=== PATIENT | female | born 1960 | race Caucasian/White ===

== ENCOUNTER 2017-12-09 11:51 | Observation (INO) ==
[2017-12-09 12:22] LABS: Basophils % 0.6 %; Eosinophils # 0.3 K/mcL (0.0-0.6); Eosinophils % 4.3 %; Hematocrit 41.2 % (35.3-44.9); Hemoglobin 13.7 g/dL (11.5-15.4); Immature Granulocytes % 0.3 % (0-4); Lymphocytes # 2.1 K/mcL (0.6-4.6); Lymphocytes % 31.7 %; Mean Corpuscular HGB Conc 33.3 g/dL (31.6-35.5); Mean Corpuscular Hemoglobin 28.5 pg (28.0-33.3); Mean Corpuscular Volume 85.7 fL (83.0-100.0); Mean Platelet Volume 10.1 fL (9.4-12.4); Monocytes # 0.4 K/mcL (0.0-1.3); Monocytes % 6.1 %; Neutrophils # 3.8 K/mcL (1.6-8.9); Platelet Count 163 K/mcL (140-400); Red Blood Count 4.81 M/mcL (3.82-4.97); Red Cell Distribution Width 12.5 % (11.5-14.5)
[2017-12-09 12:34] LABS: Albumin 4.3 g/dL (3.5-5.7); Bilirubin,Direct 0.1 mg/dL (0.0-0.2); Bilirubin,Indirect 0.5 mg/dL (0.0-1.2); Bilirubin,Total 0.6 mg/dL (0.3-1.0); Calcium 9.6 mg/dL (8.6-10.3); Carbon Dioxide 25 mEq/L (23-29); Chloride 105 mEq/L (98-107); Potassium 4.2 mEq/L (3.5-5.1); Sodium 137 mEq/L (136-145)
[2017-12-09 12:40] LABS: Alanine Aminotransferase 25 Units/L (7-52); Albumin/Globulin Ratio 1.5 (1.1-2.2); Alkaline Phosphatase 82 Units/L (34-104); Aspartate Amino Transferase 31 Units/L (13-39); BUN/Creatinine Ratio 19 (6-26); Blood Urea Nitrogen 11 mg/dL (6-20); Globulin 2.8 g/dL (2.4-3.5); Glucose 171 mg/dL (70-105); Lipase 34 Units/L (11-82); Osmolality,Calculated 287 (280-300); Total Protein 7.1 g/dL (6.4-8.9); eGFR For African Americans > 60 (> 60); eGFR For Non-African Americans > 60 (> 60)
--- NOTE | 2017-12-09 15:56 | Emergency Department Note ---
START Narrative - START START: I examined this patient and my medical decision-making was reviewed with the [employer]/PA/Advanced Practice Nurse/Resident Physician. I agree with the documented findings, disposition and treatment plan as described except to the extent set forth below. ED attending: Patient's emergency medicine resident Dr. JIE MUNIZ Please see copy of this note for H&P evaluation and management and ED disposition. We both had independent [id number] time in contact with this patient. Briefly: A 57-year-old female presents with several days of right upper quadrant pain and nausea. Some guarding but no rebound. No distention. Patient is afebrile with stable vital signs. Patient still has her gallbladder. Patient with screening labs and a right upper quadrant ultrasound. Her pain and discomfort and nausea will be treated. Disposition pending.
[2017-12-09] MEDS ORDERED: Hyoscyamine SL 0.125 MG TAB.SUBL SL ONE (16:22)
--- NOTE | 2017-12-09 18:12 | Emergency Department Note ---
Disposition Clinical Impression: Gall bladder disease Disposition: Admitted As Inpatient Condition: Good Referrals: Taurus Elizabeth MD [Primary Care Provider] - Forms: ED Satisfaction Letter, Work/School Release Abdominal Pain HPI - General Chief Complaint: ED Abdominal Pain Stated Complaint: abd pain Source: patient Mode of arrival: ambulatory Limitations: no limitations Nursing Notes Reviewed: Yes Vital Signs Reviewed: Yes - History of Present Illness HPI Narrative: Patient presents today for evaluation of right upper quadrant abdominal pain. Patient's symptoms started 3 weeks ago. Intermittent in nature. Over the last 4 days has been chronic. Seen by PCP and prescribed outpatient ultrasound. Pain has been worsening causing her to feel nauseous and not have any appetite. Patient's pain is rated 9 out of 10. Patient has had previous appendectomy when they removed her uterus as well as both ovaries. No other abdominal surgeries. Pain Scale: 7 - Related Data Home Medications Medication Instructions Recorded Confirmed Insulin ASPART [NovoLOG] 15 unit SQ ACHS 10/08/15 12/09/17 Atorvastatin Calcium [Lipitor] 20 mg PO HS 12/09/17 12/09/17 Cholecalciferol (Vitamin D3) 8,000 unit PO DAILY 12/09/17 12/09/17 [Vitamin D3] Insulin Glargine,Hum.rec.anlog 80 unit SQ HS 12/09/17 12/09/17 [Lantus Solostar] Metformin HCl [Glucophage] 1,000 mg PO BID 12/09/17 12/09/17 Vitamin E Acid Succinate [Vitamin 400 unit PO DAILY 12/09/17 12/09/17 E] Previous Rx's Medication Instructions Recorded Losartan Potassium [Cozaar] 100 mg PO DAILY #90 tab 04/21/17 Venlafaxine XR (24 HR) [Effexor XR] 150 mg PO DAILY #90 cap.er.24h 04/21/17 Tamoxifen Citrate 20 mg PO DAILY #90 tab 12/05/17 Allergies Allergy/AdvReac Type Severity Reaction Status Date / Time diphenhydramine AdvReac Anxiety Verified 12/09/17 16:18 [From Jose] Review of Systems: CONSTITUTIONAL: No weight loss, fever, chills, weakness or fatigue. HEENT: Eyes: No visual changes. Ears, Nose, Throat: No hearing loss, difficulty talking or unable to swallow. SKIN: No rash or itching. CARDIOVASCULAR: No chest pain, chest pressure or chest discomfort. No palpitations or edema. RESPIRATORY: No shortness of breath, cough or sputum. GASTROINTESTINAL: Abdominal pain, nausea, decreased appetite GENITOURINARY: No burning on urination or hematuria. NEUROLOGICAL: No headache, dizziness, syncope, paralysis, ataxia, numbness or tingling in the extremities. No change in bowel or bladder control. MUSCULOSKELETAL: No muscle pain, back pain, joint pain or stiffness. Abdominal Pain PMH - Past Medical History Medical history: Reports: cancer, hyperlipidemia, hypertension Female Surgical History: Reports: breast surgery, hysterectomy Psychiatric history: Reports: anxiety, depression - Social History Smoking status: Current some day smoker Alcohol use: Reports: none Drug use: Reports: none Physical Exam General: Well appearing, nontoxic, no acute distress Head: Normocephalic Atraumatic Eyes: PERRL, EOMI ENT: Airway patent, no stridor Neck: supple, no meningismus Chest: Lungs clear to auscultation bilateral Cardiac: Regular rate and rhythm, no murmurs, rubs or gallops Abdomen: Right upper quadrant tenderness with guarding but no rebound, no CVA tenderness. Musculoskeletal: Calves symmetric, nontender, no palpable cord Skin: No rash, normal skin tone Neuro: Alert and Oriented to person, place, and time; No focal deficit, CN 2-12 symmetric and intact - General Limitations: no limitations General appearance: alert, in no apparent distress Course - Consultations Consultation #1: Discussed ultrasound findings with Dr. Thompson. Patient with continued symptoms for 3 days. He will eval at bedside. Accepts patient to his service. Vital Signs Temperature 97.8 F 12/09/17 12:01 Pulse Rate 103 12/09/17 12:01 Respiratory Rate 18 12/09/17 12:01 Blood Pressure 118/78 12/09/17 12:01 O2 Sat by Pulse Oximetry 98 12/09/17 12:01 Temperature 97.8 F 12/09/17 12:01 Pulse Rate 103 12/09/17 12:01 Respiratory Rate 18 12/09/17 12:01 Blood Pressure 118/78 12/09/17 12:01 O2 Sat by Pulse Oximetry 98 12/09/17 16:20 Oxygen Delivery Oxygen Delivery Room Air Abdominal Pain - Lab Data Result diagrams: 12/09/17 12:10 12/09/17 12:10 Lab Results 12/09/17 12/09/17 Range/Units 12:10 12:10 WBC 6.6 (4.3-11.1) K/mcL RBC 4.81 (3.82-4.97) M/mcL Hgb 13.7 (11.5-15.4) g/dL Hct 41.2 (35.3-44.9) % MCV 85.7 (83.0-100.0) fL MCH 28.5 (28.0-33.3) pg MCHC 33.3 (31.6-35.5) g/dL RDW 12.5 (11.5-14.5) % Plt Count 163 (140-400) K/mcL MPV 10.1 (9.4-12.4) fL Immature Gran % 0.3 (0-4) % Seg Neutrophils % 57.0 % Lymphocytes % 31.7 % Monocytes % 6.1 % Eosinophils % 4.3 % Basophils % 0.6 % Neutrophils # 3.8 (1.6-8.9) K/mcL Lymphocytes # 2.1 (0.6-4.6) K/mcL Monocytes # 0.4 (0.0-1.3) K/mcL Eosinophils # 0.3 (0.0-0.6) K/mcL Basophils # 0.0 (0.0-0.2) K/mcL Sodium 137 (136-145) mEq/L Potassium 4.2 (3.5-5.1) mEq/L Chloride 105 (98-107) mEq/L Carbon Dioxide 25 (23-29) mEq/L BUN 11 (6-20) mg/dL Creatinine 0.58 L (0.60-1.20) mg/dL Est GFR ( Amer) > 60 (> 60) Est GFR (Non-Af Amer) > 60 (> 60) BUN/Creatinine Ratio 19 (6-26) Glucose 171 H (70-105) mg/dL Calculated Osmolality 287 (280-300) Calcium 9.6 (8.6-10.3) mg/dL Total Bilirubin 0.6 (0.3-1.0) mg/dL Direct Bilirubin 0.1 (0.0-0.2) mg/dL Indirect Bilirubin 0.5 (0.0-1.2) mg/dL AST 31 (13-39) Units/L ALT 25 (7-52) Units/L Alkaline Phosphatase 82 (34-104) Units/L Serum Total Protein 7.1 (6.4-8.9) g/dL Albumin 4.3 (3.5-5.7) g/dL Globulin 2.8 (2.4-3.5) g/dL Albumin/Globulin Ratio 1.5 (1.1-2.2) Lipase 34 (11-82) Units/L
[2017-12-09] MEDS ORDERED: GI Cocktail 40 ML EACH PO ONE (19:34)
[2017-12-09] MEDS ORDERED: Ondansetron 4 MG/2 ML VIAL IVP PRN (19:34)
--- NOTE | 2017-12-09 19:46 | General Surg History&Physical ---
Date of Encounter: 12/09/17 Time of Encounter: 19:41 Assessment and Plan (1) Gall bladder disease Current Visit: Yes Status: Acute 57F with biliary colic, likely cholecystitis; NPO IVF abx plan for OR in AM; discussed with patient; The assessment and plan as outlined above was discussed with the patient and/or family members who expressed understanding and agreement. All questions were answered. History of Present Illness Chief complaint: abdominal pain HPI: Ms. Harris is a 57 year old female h/o HTN, DM II currently on insulin, last Hba1c ~ 11 who presents with 3 week history of abdominal pain localized to the RUQ with radiation to her back with associated nausea, vomiting; no reports of fevers, chills. She states that at present she is unable tolerate a diet at present. she presents to the ED for further management. Past Med Surg Social Fam HX - Past Medical History Medical history: cancer, hyperlipidemia, hypertension Psychiatric history: anxiety, depression - Past Surgical History Surgical History: breast surgery, cancer surgery - Social History Smoking Status: Current some day smoker Smokeless Tobacco Status: No Alcohol use: none Drug use: none - Additional Family History Additional family history: non contributory Medications and Allergies Insulin ASPART [NovoLOG] 15 unit SQ ACHS 10/08/15 [History] Losartan Potassium [Cozaar] 100 mg PO DAILY #90 tab 04/21/17 [Rx] Venlafaxine XR (24 HR) [Effexor XR] 150 mg PO DAILY #90 cap.er.24h 04/21/17 [Rx] Tamoxifen Citrate 20 mg PO DAILY #90 tab 12/05/17 [Rx] Atorvastatin Calcium [Lipitor] 20 mg PO HS 12/09/17 [History] Cholecalciferol (Vitamin D3) [Vitamin D3] 8,000 unit PO DAILY 12/09/17 [History] Insulin Glargine,Hum.rec.anlog [Lantus Solostar] 80 unit SQ HS 12/09/17 [History ] Metformin HCl [Glucophage] 1,000 mg PO BID 12/09/17 [History] Vitamin E Acid Succinate [Vitamin E] 400 unit PO DAILY 12/09/17 [History] 3 Allergy/AdvReac Type Severity Reaction Status Date / Time diphenhydramine AdvReac Anxiety Verified 12/09/17 16:18 [From Jose] Review of Systems All systems PM: A 10-system review of systems was performed and is negative for pertinent findings except as documented above in the HPI. General Surgery Exam Initial Vital Signs Temp Pulse Resp BP Pulse Ox 97.8 F 103 18 118/78 98 12/09/17 12:01 12/09/17 12:01 12/09/17 12:01 12/09/17 12:01 12/09/17 12:01 - General physical appearance no distress - Eyes other (no scleral icterus), normal ocular movement - ENT normocephalic - Neck no lymphadectomy - Respiratory normal expansion, normal respiratory effort - Cardiovascular Cardiovascular exam: Present: RRR - Abdomen Abdomen general surgery: Present: soft, tender Abdominal Tenderness: Present: RUQ - Integumentary Integumentary general surgery: Present: warm and dry - Neurologic Present: CN 2-12 grossly intact - Musculoskeletal Present: normal gait - Psychiatric Psychiatric general surgery: Present: A&Ox3 Results - Labs 12/09/17 12:10 12/09/17 12:10 Abnormal lab results Creatinine 0.58 mg/dL (0.60-1.20) L 12/09/17 12:10 Glucose 171 mg/dL (70-105) H 12/09/17 12:10 Diabetes panel 12/09/17 Range/Units 12:10 Sodium 137 (136-145) mEq/L Potassium 4.2 (3.5-5.1) mEq/L Chloride 105 (98-107) mEq/L Carbon Dioxide 25 (23-29) mEq/L BUN 11 (6-20) mg/dL Creatinine 0.58 L (0.60-1.20) mg/dL Glucose 171 H (70-105) mg/dL Calcium 9.6 (8.6-10.3) mg/dL AST 31 (13-39) Units/L ALT 25 (7-52) Units/L Alkaline Phosphatase 82 (34-104) Units/L Albumin 4.3 (3.5-5.7) g/dL Calcium panel 12/09/17 Range/Units 12:10 Calcium 9.6 (8.6-10.3) mg/dL Albumin 4.3 (3.5-5.7) g/dL Pituitary panel 12/09/17 Range/Units 12:10 Sodium 137 (136-145) mEq/L Potassium 4.2 (3.5-5.1) mEq/L Chloride 105 (98-107) mEq/L Carbon Dioxide 25 (23-29) mEq/L BUN 11 (6-20) mg/dL Creatinine 0.58 L (0.60-1.20) mg/dL Glucose 171 H (70-105) mg/dL Calcium 9.6 (8.6-10.3) mg/dL Adrenal panel 12/09/17 Range/Units 12:10 Sodium 137 (136-145) mEq/L Potassium 4.2 (3.5-5.1) mEq/L Chloride 105 (98-107) mEq/L Carbon Dioxide 25 (23-29) mEq/L BUN 11 (6-20) mg/dL Creatinine 0.58 L (0.60-1.20) mg/dL Glucose 171 H (70-105) mg/dL Calcium 9.6 (8.6-10.3) mg/dL Total Bilirubin 0.6 (0.3-1.0) mg/dL AST 31 (13-39) Units/L ALT 25 (7-52) Units/L Alkaline Phosphatase 82 (34-104) Units/L Albumin 4.3 (3.5-5.7) g/dL All other labs normal. - Imaging US - abdomen: report reviewed, image reviewed (all images were reviewed and intepreted by me)
[2017-12-09] MEDS ORDERED: Insulin DETEMIR 100 UNIT/ML X5UNITS SQ SCH (21:30)
[2017-12-09] MEDS ORDERED: Piperacillin/Tazobactam 3.375 GM in Water for inj. (sterile) 20 ML 20 ML IVPB SCH (22:00)
[2017-12-09] MEDS: D5% in 0.45% NACL w KCl 20 MEQ/1,000 ML MLS IVC SCH (22:29)
[2017-12-09] MEDS: *HR* FentaNYL (PF) 100 MCG/2 ML VIAL IVP PRN (22:34)
[2017-12-10] MEDS: Insulin LISPRO 300 UNITS/3 ML VIAL SQ SCH ×5 (03:03→21:59)
[2017-12-10] MEDS: *HR* FentaNYL (PF) 100 MCG/2 ML VIAL IVP PRN ×3 (03:16→14:23)
[2017-12-10] MEDS ORDERED: Venlafaxine XR (24 HR) 150 MG CAP.ER.24H PO SCH (09:00)
[2017-12-10] MEDS: D5% in 0.45% NACL w KCl 20 MEQ/1,000 ML MLS IVC SCH (11:23)
--- NOTE | 2017-12-10 14:47 | General Surgery Progress Note ---
Date of Encounter: 12/10/17 Time of Encounter: 14:45 - Assessment and Plan (1) Gall bladder disease Current Visit: Yes Status: Acute 57F with biliary colic, likely acute cholecystitis; NPO IVF abx plan for OR today for lap andrew Subjective Patient reports: no new complaints, feels better, still having pain, afebrile Objective Vital Signs - Last 8 Hours Temp Pulse Resp BP Pulse Ox 12/10/17 11:57 98.3 F 83 18 136/87 96 12/10/17 08:30 98.3 F 77 18 126/80 95 Intake and Output 12/09/17 12/10/17 12/10/17 23:59 07:59 15:59 Intake Total 100 / 100 1100 / 1100 Output Total 0 / 0 Balance 100 / 100 1100 / 1100 Intake: IV Fluids 100 / 100 1100 / 1100 KCl 20mEq IN D5%-0.45 NACL 20 1000 / 1000 meq In 1,000 ml @ 100 mls/hr IVC .Q10H JUNAID Rx#:[id number] Zosyn 3.375 GM In 0.9 % Sodium 100 / 100 100 / 100 Chloride 100 ML @ 25 mls/hr IVPB Q8H JUNAID Rx#:[id number] Oral 0 / 0 Output: Urine 0 / 0 Other: Weight 91.2 kg Blood Glucose* 185 256 Patient Weight 12/10/17 23:59 Weight 91.2 kg - General physical appearance no distress - Eyes normal ocular movement - Respiratory normal expansion, normal respiratory effort - Cardiovascular Cardiovascular exam: Present: RRR - Abdomen Abdomen: Present: soft, tender Abdominal Tenderness: RUQ - Neurologic CN 2-12 grossly intact - Psychiatric oriented to time, oriented to person, oriented to place - Labs 12/09/17 12:10 12/09/17 12:10 Consult Discharge Plan - Plan Referrals: Taurus Elizabeth MD [Primary Care Provider] -
[2017-12-10] MEDS ORDERED: *HR* FentaNYL (PF) 100 MCG/2 ML VIAL ONE (15:50)
[2017-12-10] MEDS ORDERED: *HR* Rocuronium Bromide 50 MG/5 ML VIAL ONE (15:50)
[2017-12-10] MEDS ORDERED: Lidocaine -MPF 4% 5 ML AMPUL ONE (15:50)
[2017-12-10] MEDS ORDERED: Lidocaine -MPF 2% 2 ML VIAL ONE (15:50)
[2017-12-10] MEDS ORDERED: *HR* Propofol 200 MG/20 ML VIAL IVP ONE (15:50)
[2017-12-10] MEDS ORDERED: *HR* Midazolam HCl 2 MG/2 ML VIAL ONE (15:51)
--- NOTE | 2017-12-10 15:55 | Anesthesia Evaluation PreOp ---
Date of Encounter: 12/10/17 Time of Encounter: 15:52 - Past History Planned Operation: Robotic lap cholecystectomy Pulmonary History: Smoker MOVIE WRITER History: Other (anxiety, depression) Anesthesia History: No Prior Anesthetic Complications, Past Anesthesia (R breast ca,EGD, colonoscopy) Alcohol Use: none Drug use: none Medications and Allergies Insulin ASPART [NovoLOG] 15 unit SQ ACHS 10/08/15 [History] Losartan Potassium [Cozaar] 100 mg PO DAILY #90 tab 04/21/17 [Rx] Venlafaxine XR (24 HR) [Effexor XR] 150 mg PO DAILY #90 cap.er.24h 04/21/17 [Rx] Tamoxifen Citrate 20 mg PO DAILY #90 tab 12/05/17 [Rx] Atorvastatin Calcium [Lipitor] 20 mg PO HS 12/09/17 [History] Cholecalciferol (Vitamin D3) [Vitamin D3] 8,000 unit PO DAILY 12/09/17 [History] Insulin Glargine,Hum.rec.anlog [Lantus Solostar] 80 unit SQ HS 12/09/17 [History ] Metformin HCl [Glucophage] 1,000 mg PO BID 12/09/17 [History] Vitamin E Acid Succinate [Vitamin E] 400 unit PO DAILY 12/09/17 [History] 3 Allergy/AdvReac Type Severity Reaction Status Date / Time diphenhydramine AdvReac Anxiety Verified 12/09/17 16:18 [From Benadryl] - Meds/Allergy Pre-op Review Medications Reviewed: Yes Allergies Reviewed: Yes Beta Blockers on Current Med List: No Anesthesia Results - Labs 12/09/17 12:10 12/09/17 12:10 Anesthesia Exam Vital Signs/O2 Sat, Most Current Temp Pulse Resp BP Pulse Ox 98.5 F 80 20 130/77 94 12/10/17 15:43 12/10/17 15:43 12/10/17 15:43 12/10/17 15:43 12/10/17 15:43 Height: 1.78m Weight: 91kg NPO (# of Hours): >8 Pain Scale: 0 Pain Scale Used: Numeric (1 - 10) - HEENT Pupil (Motor): Pupils equal, EOMI Mallampati: III Teeth: Missing Oral Opening: Greater than 3 - MOVIE WRITER LOC: Oriented MOVIE WRITER Motor: Normal RUE, Normal LUE, Normal RLE, Normal LLE, Normal Face MOVIE WRITER Sensory: Normal: RUE, LUE, RLE, LLE, Face - Cardiac Rhythm: Regular - Pulmonary Breath Sounds: bilateral Clear Respiratory Effort: Symmetrical Anesthesia Assess/Plan ASA Score: 2 Modified [place] Scale for Level of Consciousness: Cooperative, oriented, and tranquil Anesthetic Plan: General Monitoring Plan: Standard Monitors Recovery Plan: PACU
[2017-12-10] MEDS ORDERED: Ondansetron 4 MG/2 ML VIAL IVP ONE (15:58)
[2017-12-10] MEDS ORDERED: *HR* Promethazine 25 MG/ML VIAL IVP PRN (15:58)
[2017-12-10] MEDS ORDERED: *HR* OxyCODONE Immed Rel 5 MG TABLET PO PRN (15:58)
[2017-12-10] MEDS ORDERED: *HR* HYDROmorphone 2 MG TABLET PO PRN (15:58)
[2017-12-10] MEDS ORDERED: Ringers Solution, Lactated 1,000 ML IVC SCH ×2 (16:00→19:54)
[2017-12-10] MEDS ORDERED: Acetaminophen IV 1,000 MG/100 ML INFUS..BTL ONE (16:16)
[2017-12-10] MEDS ORDERED: Albuterol 2.5 MG/3 ML NEBULIZER IH ONE (16:26)
[2017-12-10] MEDS ORDERED: Albuterol 2.5 MG/3 ML NEBULIZER ONE (16:26)
[2017-12-10] MEDS ORDERED: Neostigmine Methylsulfate 3 MG/3 ML SYRINGE ONE (17:02)
[2017-12-10] MEDS ORDERED: Dexamethasone 4 MG/ML VIAL ONE (17:02)
[2017-12-10] MEDS ORDERED: Ondansetron 4 MG/2 ML VIAL ONE (17:02)
--- NOTE | 2017-12-10 19:02 | Operative Note ---
Date of procedure: 12/10/17 Pre-op diagnosis: acute cholecystitis Post-op diagnosis: same Procedure: robotic cholecystectomy Complications: none Anesthesia: GETA Local Anesthetics: 0.5% Sensorcaine HCL SubQ (cc) Surgeon: Jevon Thompson Was there an medical library assistant present: Yes Keel Press Operator: Cherie Botello Estimated blood loss (cc): 20 Specimen: gallbladder and contents Condition: stable Disposition: PACU Procedure in Detail: The patient was brought into the operating room suite and was placed in the supine position. Mechanical DVT prophylaxis was applied. A time-in was conducted. The patient underwent smooth induction of anesthesia. Preoperative antibiotics were given. The patient was prepped and draped in the usual fashion. A time-out was held identifying the correct patient, pathology, and procedure. Everyone was in agreement and we began the procedure. Incision to Dissection I started by creating a 12mm supraumbilical incision. Via open Joss technique I did enter into the abdomen. I inserted the 12mm trocar followed by the 30 degree camera, ensured that I did not cause intraabdominal injury upon entry, and quickly identified the gallbladder. I created a 5mm incisions one handbreadth to the left and right of the umbilical incision and an medical library assistant port along the R anterior axillary line. I then docked the robot in the usual fashion. Using laparoscopic graspers I managed to elevate the gallbladder above the liver. At the Console I grasp the edge of the gallbladder to retract laterally. Using the [place] instrument as well as the hook-electrocautery, I dissected out the cystic duct and the cystic artery. I excised the posterior tissue to visualize the liver. I was able to clearly visualize the critical view of safety. Critical view of Safety to Excison of the gallbladder I then clipped both structures using plastic clips, two on the stay side, one on the specimen side. Using robotic scissors, I cut between the clip on the specimen side and the first clip on the stay side. Then using tension and counter-tension, I used the electrocautery to excise the gallbladder off of the liver bed. Before complete excision, I evaluated the liver bed to ensure there 1.) there was no bleeding, 2. No excessive bile leakage, and 3.) to evaluate my clips. There was no bleeding, bile leakage, and the clips were all the way across both duct and artery. Removal of gallbladder to Closure After undocking the robot, I inserted the endocatch bag into the umbilical port. I placed the specimen into the bag and retrieved it through the umbilical port. i then irrgiated the liver bed and above the liver before suctioning both irrigation fluid and air. I removed the 5mm ports, turned off the insufllation, then removed the 12mm umbilical port. I then close the umbilical fascia a vicryl suture in a figure of 8 fashion. All incisions were closed with interrupted 4-0 monocryl and sealed with dermabond. The patient tolerated the procedure well and went back to PACU in stable condition.
[2017-12-10] MEDS ORDERED: 0.9 % Sodium Chloride 1,000 ML IVC SCH (19:15)
--- NOTE | 2017-12-10 19:31 | Anesthesia Evaluation Post Op ---
Date of Encounter: 12/10/17 Time of Encounter: 19:30 - Vital Signs Vital Signs: Vital Signs/O2 Sat/Glucose, Most Current Temp Pulse Resp BP Pulse Ox 12/10/17 19:28 97.8 F 77 18 109/63 94 12/10/17 19:18 78 16 106/60 94 12/10/17 19:08 77 14 106/64 95 12/10/17 18:58 97.9 F 76 12 106/58 93 12/10/17 16:29 83 16 122/85 94 12/10/17 15:43 98.5 F 80 20 130/77 94 - Lungs Lungs: Clear Ascult./Percussion - Airway Airway: Non-obstructed - Cardiovascular Regular Rate - Mental Status Mental Status: Alert & Oriented, Answers Appropriately - Pain Pain Scale: 1 - Nausea Vomiting Nausea Vomiting: Not Present - Hydration Hydration: Ice chips - Discharge PostOp Status: Transfer Patient to floor
[2017-12-10] MEDS ORDERED: Ondansetron 4 MG/2 ML VIAL IVP PRN (19:54)
[2017-12-10 21:27] LABS: Alanine Aminotransferase 49 Units/L (7-52); Albumin 3.7 g/dL (3.5-5.7); Albumin/Globulin Ratio 1.5 (1.1-2.2); Alkaline Phosphatase 69 Units/L (34-104); Aspartate Amino Transferase 81 Units/L (13-39); BUN/Creatinine Ratio 13 (6-26); Bilirubin,Total 0.8 mg/dL (0.3-1.0); Blood Urea Nitrogen 8 mg/dL (6-20); Calcium 8.8 mg/dL (8.6-10.3); Carbon Dioxide 24 mEq/L (23-29); Chloride 106 mEq/L (98-107); Globulin 2.5 g/dL (2.4-3.5); Glucose 245 mg/dL (70-105); Osmolality,Calculated 288 (280-300); Potassium 4.5 mEq/L (3.5-5.1); Sodium 136 mEq/L (136-145); Total Protein 6.2 g/dL (6.4-8.9); eGFR For African Americans > 60 (> 60); eGFR For Non-African Americans > 60 (> 60)
[2017-12-10] MEDS: Insulin DETEMIR 100 UNIT/ML X5UNITS SQ SCH (21:59)
[2017-12-10] MEDS: *HR* OxyCODONE Immed Rel 5 MG TABLET PO PRN (21:59)
[2017-12-11] MEDS: *HR* OxyCODONE Immed Rel 5 MG TABLET PO PRN ×3 (05:25→21:03)
[2017-12-11] MEDS: Insulin LISPRO 300 UNITS/3 ML VIAL SQ SCH ×4 (08:09→21:04)
[2017-12-11] MEDS ORDERED: Venlafaxine XR (24 HR) 150 MG CAP.ER.24H PO SCH (09:00)
[2017-12-11 09:40] LABS: Basophils % 0.1 %; Eosinophils # 0.1 K/mcL (0.0-0.6); Eosinophils % 1.2 %; Hematocrit 38.3 % (35.3-44.9); Hemoglobin 12.7 g/dL (11.5-15.4); Immature Granulocytes % 0.2 % (0-4); Lymphocytes # 2.1 K/mcL (0.6-4.6); Lymphocytes % 24.8 %; Mean Corpuscular HGB Conc 33.2 g/dL (31.6-35.5); Mean Corpuscular Hemoglobin 28.7 pg (28.0-33.3); Mean Corpuscular Volume 86.5 fL (83.0-100.0); Mean Platelet Volume 9.5 fL (9.4-12.4); Monocytes # 0.5 K/mcL (0.0-1.3); Monocytes % 5.4 %; Neutrophils # 5.7 K/mcL (1.6-8.9); Platelet Count 147 K/mcL (140-400); Red Blood Count 4.43 M/mcL (3.82-4.97); Red Cell Distribution Width 12.6 % (11.5-14.5); Segmented Neutrophils % 68.3 %
[2017-12-11 10:44] LABS: BUN/Creatinine Ratio 14 (6-26); Blood Urea Nitrogen 8 mg/dL (6-20); Calcium 9.2 mg/dL (8.6-10.3); Carbon Dioxide 25 mEq/L (23-29); Chloride 105 mEq/L (98-107); Glucose 237 mg/dL (70-105); Osmolality,Calculated 290 (280-300); Potassium 3.8 mEq/L (3.5-5.1); Sodium 137 mEq/L (136-145); eGFR For African Americans > 60 (> 60); eGFR For Non-African Americans > 60 (> 60)
--- NOTE | 2017-12-11 13:07 | Discharge Summary ---
Date of Encounter: 12/11/17 Time of Encounter: 13:04 - Discharge Diagnosis (1) Gall bladder disease Priority: Primary Status: Acute Comments: POD#1 s/p robotic andrew; tolerating diet ambulating voiding pain controlled okay for discharge today - Discharge Medications Prescriptions: OxyCODONE Immed Rel [Roxicodone 5 MG] 5 mg PO Q6HR PRN 7 Days #28 tablet PRN Reason: Pain Docusate [Colace] 100 mg PO BID PRN 10 Days #20 capsule PRN Reason: Constipation Home Medications: Insulin ASPART [NovoLOG] 15 unit SQ ACHS 10/08/15 [History] Losartan Potassium [Cozaar] 100 mg PO DAILY #90 tab 04/21/17 [Rx] Venlafaxine XR (24 HR) [Effexor Xr] 150 mg PO DAILY #90 cap.er.24h 04/21/17 [Rx] Tamoxifen Citrate 20 mg PO DAILY #90 tab 12/05/17 [Rx] Atorvastatin Calcium [Lipitor] 20 mg PO HS 12/09/17 [History] Cholecalciferol (Vitamin D3) [Vitamin D3] 8,000 unit PO DAILY 12/09/17 [History] Insulin Glargine,Hum.rec.anlog [Lantus Solostar] 80 unit SQ HS 12/09/17 [History ] Metformin HCl [Glucophage] 1,000 mg PO BID 12/09/17 [History] Vitamin E Acid Succinate [Vitamin E] 400 unit PO DAILY 12/09/17 [History] Docusate [Colace] 100 mg PO BID PRN 10 Days #20 capsule 12/11/17 [Rx] OxyCODONE Immed Rel [Roxicodone 5 MG] 5 mg PO Q6HR PRN 7 Days #28 tablet [Rx] Allergies/Adverse Reactions: 3 Allergy/AdvReac Type Severity Reaction Status Date / Time diphenhydramine AdvReac Anxiety Verified 12/09/17 16:18 [From Jose] General Surgery Exam Initial Vital Signs Temp Pulse Resp BP Pulse Ox 97.8 F 103 18 118/78 98 12/09/17 12:01 12/09/17 12:01 12/09/17 12:01 12/09/17 12:01 12/09/17 12:01 - General physical appearance no distress - Respiratory normal expansion, normal respiratory effort - Cardiovascular Cardiovascular exam: Present: RRR - Abdomen Abdomen general surgery: Present: soft, tender (appropriately tender to palpation) - Incision Incision: Present: clean and dry, intact - Integumentary Integumentary general surgery: Present: warm and dry - Neurologic Present: CN 2-12 grossly intact - Psychiatric Psychiatric general surgery: Present: A&Ox3 Date of admission: 12/09/17 21:26 Primary care physician: Taurus Elizabeth MD Discharging clinician: Jevon Thompson Anticipated date of discharge: 12/11/17 - Patient Status Disposition: Home, Self-Care Condition: Good Overall status at discharge: patient is back to baseline - Discharge Instructions Follow Up With: Taurus Elizabeth MD [Primary Care Provider] - Jevon Thompson MD [Non-Partnered Physician] - Additional Instructions: Pain Narcotics are prescribed. 1-2 tabs every 6 hours. Please take with meals. DO NOT drive while taking narcotics. Activity As tolerated. However, I encourage you to limit heaving lifting and strenuous activity until evaluated in clinic. Diet As tolerated. Bowel Regimen As long as you are taking narcotics, please take the stool softner daily. Warnings If you experience significant redness around the incision or drainage from the incision that is purulent or malodorous, or you experience fevers, chills, or food intolerance (including nausea, vomiting, abdominal pain or distension), jaundice or yellow skin, eyes, tongue/cheek, or any symptoms you feel warrant evaluation, please call the office. If unable to reach the office, please go to nearest urgent care center or emergency department - Diet and Activity Activity: resume usual activities as tolerated Diet: advance to your usual diet - Hospital Course Hospital course: Ms. Harris is a 57 year old female - Time Spent with Patient Total time spent providing and/or coordinating discharge services: Greater than 30 minutes Labs on day of discharge: Labs from last 24 hours 12/11/17 12/11/17 12/10/17 09:34 09:34 21:53 WBC 8.3 RBC 4.43 Hgb 12.7 Hct 38.3 MCV 86.5 MCH 28.7 MCHC 33.2 RDW 12.6 Plt Count 147 MPV 9.5 Immature Gran % 0.2 Seg Neutrophils % 68.3 Lymphocytes % 24.8 Monocytes % 5.4 Eosinophils % 1.2 Basophils % 0.1 Neutrophils # 5.7 Lymphocytes # 2.1 Monocytes # 0.5 Eosinophils # 0.1 Basophils # 0.0 Sodium 137 Potassium 3.8 Chloride 105 Carbon Dioxide 25 BUN 8 Creatinine 0.57 L Est GFR ( Amer) > 60 Est GFR (Non-Af Amer) > 60 BUN/Creatinine Ratio 14 Glucose 237 H POC Glucose 257 H Calculated Osmolality 290 Calcium 9.2 Total Bilirubin AST ALT Alkaline Phosphatase Serum Total Protein Albumin Globulin Albumin/Globulin Ratio 12/10/17 20:09 WBC RBC Hgb Hct MCV MCH MCHC RDW Plt Count MPV Immature Gran % Seg Neutrophils % Lymphocytes % Monocytes % Eosinophils % Basophils % Neutrophils # Lymphocytes # Monocytes # Eosinophils # Basophils # Sodium 136 Potassium 4.5 Chloride 106 Carbon Dioxide 24 BUN 8 Creatinine 0.62 Est GFR ( Amer) > 60 Est GFR (Non-Af Amer) > 60 BUN/Creatinine Ratio 13 Glucose 245 H POC Glucose Calculated Osmolality 288 Calcium 8.8 Total Bilirubin 0.8 AST 81 H ALT 49 Alkaline Phosphatase 69 Serum Total Protein 6.2 L Albumin 3.7 Globulin 2.5 Albumin/Globulin Ratio 1.5
[2017-12-11] MEDS: Insulin DETEMIR 100 UNIT/ML X5UNITS SQ SCH (21:04)
[2017-12-12] MEDS: *HR* OxyCODONE Immed Rel 5 MG TABLET PO PRN (03:29)
[2017-12-12 05:06] LABS: Basophils % 0.4 %; Eosinophils # 0.2 K/mcL (0.0-0.6); Eosinophils % 3.4 %; Hematocrit 38.3 % (35.3-44.9); Hemoglobin 12.4 g/dL (11.5-15.4); Immature Granulocytes % 0.1 % (0-4); Lymphocytes # 2.6 K/mcL (0.6-4.6); Lymphocytes % 38.8 %; Mean Corpuscular HGB Conc 32.4 g/dL (31.6-35.5); Mean Corpuscular Hemoglobin 28.4 pg (28.0-33.3); Mean Corpuscular Volume 87.6 fL (83.0-100.0); Mean Platelet Volume 9.9 fL (9.4-12.4); Monocytes # 0.5 K/mcL (0.0-1.3); Monocytes % 6.7 %; Neutrophils # 3.4 K/mcL (1.6-8.9); Platelet Count 131 K/mcL (140-400); Red Blood Count 4.37 M/mcL (3.82-4.97); Red Cell Distribution Width 12.6 % (11.5-14.5); Segmented Neutrophils % 50.6 %
[2017-12-12 05:27] LABS: BUN/Creatinine Ratio 20 (6-26); Blood Urea Nitrogen 12 mg/dL (6-20); Calcium 8.9 mg/dL (8.6-10.3); Carbon Dioxide 27 mEq/L (23-29); Chloride 106 mEq/L (98-107); Glucose 160 mg/dL (70-105); Osmolality,Calculated 289 (280-300); Potassium 3.6 mEq/L (3.5-5.1); Sodium 138 mEq/L (136-145); eGFR For African Americans > 60 (> 60); eGFR For Non-African Americans > 60 (> 60)
[2017-12-12 06:32] VITALS: BP 133/80
--- NOTE | 2017-12-12 07:48 | Event Note ---
Date of Encounter: 12/12/17 Time of Encounter: 07:48 patient is appropriate for discharge
[2017-12-12] MEDS: Insulin LISPRO 300 UNITS/3 ML VIAL SQ SCH (08:07)
== END 2017-12-12 08:08 | disposition home or self-care (01) ==
LOC: EMEROO 11:51 → 3ANU 11:51
PROVIDERS: ADMIT Surgery; ATTEND Surgery

== ENCOUNTER 2019-12-04 10:50 | Observation (INO) ==
[2019-12-04] MEDS ORDERED: Aspirin 81 MG TAB.CHEW PO ONE (11:17)
[2019-12-04] MEDS: Nitroglycerin 0.4 MG TAB.SUBL SL PRN ×3 (11:34→18:52)
[2019-12-04 11:51] LABS: INR 1.2; Prothrombin Time 13.2 Seconds (9.4-12.1)
[2019-12-04 11:53] LABS: Activated Partial Thrombo Time 34.4 Seconds (26.0-36.0)
[2019-12-04 11:55] LABS: Basophils % 0.4 %; Eosinophils # 0.2 K/mcL (0.0-0.6); Eosinophils % 2.4 %; Hematocrit 41.8 % (35.3-44.9); Hemoglobin 14.1 g/dL (11.5-15.4); Immature Granulocytes % 0.3 % (0-4); Lymphocytes # 2.4 K/mcL (0.6-4.6); Lymphocytes % 31.9 %; Mean Corpuscular HGB Conc 33.7 g/dL (31.6-35.5); Mean Corpuscular Hemoglobin 27.8 pg (28.0-33.3); Mean Corpuscular Volume 82.4 fL (83.0-100.0); Mean Platelet Volume 10.8 fL (9.4-12.4); Monocytes # 0.6 K/mcL (0.0-1.3); Monocytes % 7.5 %; Neutrophils # 4.4 K/mcL (1.6-8.9); Platelet Count 187 K/mcL (140-400); Red Blood Count 5.07 M/mcL (3.82-4.97); Red Cell Distribution Width 13.2 % (11.5-14.5); Segmented Neutrophils % 57.5 %; White Blood Count 7.6 K/mcL (4.3-11.1)
[2019-12-04 12:12] LABS: BUN/Creatinine Ratio 18 (6-26); Blood Urea Nitrogen 15 mg/dL (8-23); Calcium 10.2 mg/dL (8.6-10.3); Carbon Dioxide 23 mEq/L (23-29); Chloride 102 mEq/L (98-107); Glucose 186 mg/dL (70-105); Osmolality,Calculated 290 (280-300); Potassium 3.9 mEq/L (3.5-5.1); Sodium 137 mEq/L (136-145); Troponin I < 0.03 ng/mL (< 0.04); eGFR For African Americans > 60 (> 60); eGFR For Non-African Americans > 60 (> 60)
[2019-12-04] MEDS ORDERED: Ondansetron 4 MG/2 ML VIAL IVP PRN (16:48)
[2019-12-04] MEDS ORDERED: D5% in Water 1,000 ML IVC PRN (17:06)
[2019-12-04] MEDS ORDERED: *HR* Dextrose 50 % in Water (Syg) 50 ML SYRINGE IVP PRN (17:06)
[2019-12-04] MEDS ORDERED: Dextrose Gel 15 GM/37.5 ML TUBE PO PRN ×2 (17:06)
[2019-12-04] MEDS ORDERED: Insulin LISPRO 300 UNITS/3 ML VIAL SQ SCH (21:00)
[2019-12-05 01:36] LABS: Basophils % 0.4 %; Eosinophils # 0.1 K/mcL (0.0-0.6); Eosinophils % 2.9 %; Hematocrit 37.6 % (35.3-44.9); Immature Granulocytes % 0.2 % (0-4); Lymphocytes # 1.8 K/mcL (0.6-4.6); Lymphocytes % 38.1 %; Mean Corpuscular HGB Conc 32.4 g/dL (31.6-35.5); Mean Corpuscular Hemoglobin 27.9 pg (28.0-33.3); Mean Corpuscular Volume 85.8 fL (83.0-100.0); Mean Platelet Volume 11.4 fL (9.4-12.4); Monocytes # 0.4 K/mcL (0.0-1.3); Monocytes % 8.1 %; Neutrophils # 2.4 K/mcL (1.6-8.9); Platelet Count 112 K/mcL (140-400); Red Blood Count 4.38 M/mcL (3.82-4.97); Red Cell Distribution Width 12.9 % (11.5-14.5); Segmented Neutrophils % 50.3 %; White Blood Count 4.8 K/mcL (4.3-11.1)
[2019-12-05 01:37] LABS: Hemoglobin 12.2 g/dL (11.5-15.4)
[2019-12-05 01:40] LABS: INR 1.1
[2019-12-05 01:58] LABS: Alanine Aminotransferase 24 Units/L (7-52); Albumin 3.7 g/dL (3.5-5.7); Albumin/Globulin Ratio 1.3 (1.1-2.2); Alkaline Phosphatase 75 Units/L (34-104); Aspartate Amino Transferase 38 Units/L (13-39); BUN/Creatinine Ratio 20 (6-26); Bilirubin,Total 0.4 mg/dL (0.3-1.0); Blood Urea Nitrogen 17 mg/dL (8-23); Calcium 9.7 mg/dL (8.6-10.3); Carbon Dioxide 25 mEq/L (23-29); Chloride 102 mEq/L (98-107); Globulin 2.8 g/dL (2.4-3.5); Glucose 305 mg/dL (70-105); Magnesium 1.5 mg/dL (1.6-2.6); Osmolality,Calculated 295 (280-300); Potassium 3.8 mEq/L (3.5-5.1); Sodium 136 mEq/L (136-145); Total Protein 6.5 g/dL (6.4-8.9); eGFR For African Americans > 60 (> 60); eGFR For Non-African Americans > 60 (> 60)
[2019-12-05] MEDS ORDERED: Regadenoson 0.4 MG/5 ML SYRINGE IVP ONE (06:20)
[2019-12-05] MEDS ORDERED: Insulin LISPRO 300 UNITS/3 ML VIAL SQ SCH ×2 (07:30→08:52)
[2019-12-05] MEDS ORDERED: Venlafaxine XR (24 HR) 150 MG CAP.ER.24H PO SCH (09:00)
[2019-12-05] MEDS ORDERED: Venlafaxine XR (24 HR) 75 MG CAP.ER.24H PO SCH (09:00)
[2019-12-05 09:34] VITALS: BP 139/83
== END 2019-12-05 12:55 | disposition home or self-care (01) ==
LOC: EMEROOARM 10:50 → 3BNU 10:50 → SUATTDRO 13:55 → 3BNU 15:03
PROVIDERS: ADMIT Internal Medicine; ATTEND Internal Medicine